=== PATIENT | male | born 1940 | race Caucasian/White ===

== ENCOUNTER → 2016-12-24 | Outpatient (CLI) | payer OTHER, MEDICARE ==
[~2016-12-24] MED LIST: ASCA500 PO; CARV3.12 PO; CHOL400C7 PO; LISI2.5T5 PO; MAGN400T5 PO; VITA400C3 PO
--- NOTE | 2016-12-25 06:06 | PAP/PSG TECHNICIAN REPORT ---
[facility] Guest Services Coordinator Polysomnogram Report Study name: None Report date: 12/25/2016 Study date: 12/24/2016 Referring Physician: DR.CHARLES MENDOZA Name: DOMINIC STOVALL Interpreting Physician: Jonathan Norwood M.D. Date of : 1940 Guest Services Coordinator: Arminda Voss, PSGT. Sex: Male Age: 76 StudyType: PSG Weight: 229 lbs Height: 76 years, Height 6' 0" : BMI: 31.05 Medications: LISINOPRIL 2.5 MG, TOPROL XL 50 MG, VIT.-A 1000 UNITS, OMEGA 3 1000 MG, COQ-10 50 MG, CIALIS 20 MG, VIT.-D2 2000 UNITS, VIT.-E 400 UNITS, VIT.-C 1000 MG, VIT.-B COMPLEX. Patient History 76 YR. OLD MALE IN ROOM 5, HERE FOR A SPLIT NIGHT SLEEP STUDY. PT. STATES THAT HE WAKES OFTEN DURING THE NIGHT. HIS DX IS FOLLOEWS: MILD DARIUS IN 2006 6.6, HE SINCE HAS HAS HAS SC AND EF IS NOW 25 %. HAS ICD, AND HAS LOST40 LBS. SINCE LAST SLEEP STUDY IN 2006.ESS=7. Parameters Monitored NPSG: E1-M2, E2-M1, Fp1-M2, Fp2-M1, F3-M2, F4-M2, F4-M1, C3-M2, C4-M2, C4-M1, O1-M2, O2-M2, O2-M1, T3-M2, T4-M1, P3-M2, P4-M1, CHIN1, CHIN2, HR, EKG, Legs, PFLOW, SNOR, FLOW, CFLOW, Tidal Volume, THOR, ABDO, SpO2, PLTH, CPRESS, ETCO2 Wave, ETCO2, pH Sleep Architecture Sleep Stages Time at Lights Off 10:31:31 PM STAGES Time (min.) TST (%) Time at Lights On 4:50:31 AM Wake 184.5 -- Total Recording Time (TRT) 380.00 min. N1 6.0 3 Total Sleep Period (TSP) 241.5 min. N2 157.5 81 Total Sleep Time (TST) 194.5min. N3 0.0 0 Awake Time 185.5 min. REM 31.0 16 Wake after Sleep Onset 154.0 min. Sleep Efficiency (SE) 51 % Sleep Onset Latency (RODGER) 30.5 min. Number of Stage 1 Shifts None Awakenings 5 Stage Changes 21 Number of REM periods 3 REM 31.0 16 REM Latency 40.0 min. NREM 163.5 84 Body Position Analysis Supine Right Left Side Prone Vertical Total Sleep Time (min.) 34.8 120.5 73.7 194.19 0.0 0.1 Total Sleep Time (%) 0% 62% 38% 100 0% N/A% Total Sleep Time REM (min.) 0.0 7.0 24.0 None 0.0 0.0 Total Sleep Time NREM (min.) 0.3 113.5 49.7 None 0.0 0.0 Intermittent Wake (min.) 34.4 105.4 44.5 None 0.0 0.1 Total Sleep Period (%) 2% None None None None None Arousals Myoclonus (PLM) * Events Count Index Events Count Index Spontaneous 8 2 Events Awake (PLMW) 5 1.6 Respiratory 0 0.0 Events Asleep w/ Arousal (PLMA) 1 0.3 PLM 1 0 Events Asleep w/o Arousal (PLMS) 66 20.4 Snoring 4 1 Total Asleep 67 20.7 Total 13 4 Total 72 11 Respiratory Analysis * CA OA MA CH H RERA Total Count 0 0 0 0 22 0 22 Index 0.0 0.0 0.0 0 6.8 0 6.8 Mean Duration 0.0 0.0 0.0 0.00 22.6 0.0 22.6 Longest Duration 0.0 0.0 0.0 0.00 0.0 0.0 51.3 Respiratory Event Summary Total Supine ~Supine Right Left Prone REM NREM Apneas Count 0 0 0 0 0 N/A 0 0 Index 0.0 0 0 0.0 0.0 N/A 0 0 Hypopneas (4% Desat) Count 22 0 22 8 14 N/A 8 14 Index 6.8 0.0 7 4.0 11.4 N/A 15.5 5.1 Apneas & All Hypopneas Count 22 0 22 8 14 N/A 8 14 Index 6.8 0 7 4 11 N/A 15.5 5.1 Respiratory Events (Transition Program Manager+All Hyp+RERA) Count 22 0 22 8 14 N/A 8 14 Index 6.8 0 7 4.0 11.4 N/A 15.5 5.1 Respiratory Related Arousal Count 0 0 0 0 0 N/A 0 0 Index 0.0 0 0 0 0 N/A 0 0 Snoring Analysis Supine Right Left Prone REM NREM Total Snore duration 8.1 min Snores count 0 254 120 N/A 18 356 374 Snore mean duration 1.3 Sec Snores index 0 126 98 N/A 34.8 130.6 115.4 TST with snoring (%) 4.1% Desaturation Event Summary: Minimum %SpO2 Event Count Mean/Min/Max Duration(sec.) Desaturation Index % Time In Bed > 90 21 30.2 / 13.8 / 58.8 6.1 59.6 86 - 90 7 31.8 / 19.8 / 58.3 3.1 39.8 81 - 85 0 N/A 0.0 0.6 76 - 80 0 N/A 0.0 0.0 71 - 75 0 N/A 0.0 0.0 66 - 70 0 N/A 0.0 0.0 61 - 65 0 N/A 0.0 0.0 56 - 60 0 N/A 0.0 0.0 51 - 55 0 N/A 0.0 0.0 < 50 0 N/A 0.0 0.0 Total REM NREM Awake <50% 0.0 min. 0.0 min. 0.0 min. 0.0 min. 51 - 60% 0.0 min. 0.0 min. 0.0 min. 0.0 min. 61 - 70% 0.0 min. 0.0 min. 0.0 min. 0.0 min. 71 - 80% 0.1 min. 0.0 min. 0.0 min. 0.1 min. 81 - 90% 139.8 min. 22.8 min. 88.4 min. 28.6 min. 91 - 100% 206.2 min. 8.0 min. 74.7 min. 123.5 min. Average 91 89 90 92 Minimum SpO2 79 82 84 79 Desaturation Event Index 3.6 13.5 5.9 0.0 # Desat. Events below 89% 15 7 8 N/A Time(%) with Saturation below 89% 7.6 3.8 2.6 1.2 Time(min.) with Saturation below 89% 26.3 13.1 8.9 4.2 Heart Rate Analysis End Tidal CO2 Analysis Min (bpm) Max (bpm) Average (bpm) TSP (mins) % of TSP Awake 31 127 63 Above 55 mmHg 0.0 0.0 NREM 52 74 60 50-55 mmHg 0.0 0.0 REM 51 77 58 45-50 mmHg 194.5 100.0 Overall 51 77 60 40-45 mmHg 0.0 0.0 35-40 mmHg 0.0 0.0 30-35 mmHg 0.0 0.0 Average ETCO2 0.0 Supplemental O2 Values Minimum O2 level: None Value Start Time End Time Guest Services Coordinator Comments PSG Study Mr. Stovall slept in the right, left, and supine positions. No cardiac arrhythmia, PLM's noted. No bruxism noted. Snoring was noted and scored as a 2 on a scale of 1 through 5. (0=no snoring, 5=snoring loud enough to be heard through a closed door or down the corea way) Mr. Stovall awoke to use the restroom 2 times during the night. Mr. Stovall stated, I did not sleep as well as I do when I am in my own bed. My shoulders were hurting me. The final report will be interpreted and signed by a sleep physician. The completed physician report will then be placed in the patient medical record. didn't sleep well he would wake for the restroom and have a hard time getting back to sleep at 4:40 am he wanted to end the sleep study shower and go home. Therapy Event: Therapy (cm H20) Total Time at Pressure (min.) TST at Pressure (min.) # Periods Sleep Onset (min.) REM Onset (min.) Sleep Efficiency % Wakefulness (%) Wakefulness (min.) NREM 1 (%) NREM 1 (min.) NREM 2 (%) NREM 2 (min.) NREM 3 (%) NREM 3 (min.) REM (%) REM (min.) # Arousals Arousal Index # Snore Snore Index AHI AHI Supine AHI Non-Supine NREM AHI REM AHI RDI # Obstructive # Central Ap # Mixed # Hypopneas RERAS Total Respiratory Events Time Below SpO2 89.00% (min.) Mean NREM SpO2 (%) Mean REM SpO2 (%) Mean Sleep SpO2 (%) Min NREM SpO2 (%) Min REM SpO2 (%) Position Supine (min.) Position Non-supine (min.) LM Index Sleep LM Index NREM LM Index REM Mean Heart Rate (bpm) Min Heart Rate (bpm)
--- NOTE | 2016-12-25 06:07 | PAP/PSG TECHNICIAN REPORT ---
[facility] Rn Surgical Pcu Polysomnogram Report Study name: None Report date: 12/25/2016 Study date: 12/24/2016 Referring Physician: DR.CHARLES MENDOZA Name: DOMINIC STOVALL Interpreting Physician: Jonathan Norwood M.D. Date of : 1940 Rn Surgical Pcu: Arminda Voss, PSGT. Sex: Male Age: 76 StudyType: PSG Weight: 229 lbs Height: 76 years, Height 6' 0" Neck Circum: BMI: 31.05 Medications: LISINOPRIL 2.5 MG, TOPROL XL 50 MG, VIT.-A 1000 UNITS, OMEGA 3 1000 MG, COQ-10 50 MG, CIALIS 20 MG, VIT.-D2 2000 UNITS, VIT.-E 400 UNITS, VIT.-C 1000 MG, VIT.-B COMPLEX. Patient History 76 YR. OLD MALE IN ROOM 5, HERE FOR A SPLIT NIGHT SLEEP STUDY. PT. STATES THAT HE WAKES OFTEN DURING THE NIGHT. HIS DX IS FOLLOEWS: MILD DARIUS IN 2006 6.6, HE SINCE HAS HAD A NE AND HIS EF IS NOW 25 %. HAS ICD, AND HAS LOST40 LBS. SINCE LAST SLEEP STUDY IN 2006.ESS=7. Parameters Monitored NPSG: E1-M2, E2-M1, Fp1-M2, Fp2-M1, F3-M2, F4-M2, F4-M1, C3-M2, C4-M2, C4-M1, O1-M2, O2-M2, O2-M1, T3-M2, T4-M1, P3-M2, P4-M1, CHIN1, CHIN2, HR, EKG, Legs, PFLOW, SNOR, FLOW, CFLOW, Tidal Volume, THOR, ABDO, SpO2, PLTH, CPRESS, ETCO2 Wave, ETCO2, pH Sleep Architecture Sleep Stages Time at Lights Off 10:31:31 PM STAGES Time (min.) TST (%) Time at Lights On 4:50:31 AM Wake 184.5 -- Total Recording Time (TRT) 380.00 min. N1 6.0 3 Total Sleep Period (TSP) 241.5 min. N2 157.5 81 Total Sleep Time (TST) 194.5min. N3 0.0 0 Awake Time 185.5 min. REM 31.0 16 Wake after Sleep Onset 154.0 min. Sleep Efficiency (SE) 51 % Sleep Onset Latency (RODGER) 30.5 min. Number of Stage 1 Shifts None Awakenings 5 Stage Changes 21 Number of REM periods 3 REM 31.0 16 REM Latency 40.0 min. NREM 163.5 84 Body Position Analysis Supine Right Left Side Prone Vertical Total Sleep Time (min.) 34.8 120.5 73.7 194.19 0.0 0.1 Total Sleep Time (%) 0% 62% 38% 100 0% N/A% Total Sleep Time REM (min.) 0.0 7.0 24.0 None 0.0 0.0 Total Sleep Time NREM (min.) 0.3 113.5 49.7 None 0.0 0.0 Intermittent Wake (min.) 34.4 105.4 44.5 None 0.0 0.1 Total Sleep Period (%) 2% None None None None None Arousals Myoclonus (PLM) * Events Count Index Events Count Index Spontaneous 8 2 Events Awake (PLMW) 5 1.6 Respiratory 0 0.0 Events Asleep w/ Arousal (PLMA) 1 0.3 PLM 1 0 Events Asleep w/o Arousal (PLMS) 66 20.4 Snoring 4 1 Total Asleep 67 20.7 Total 13 4 Total 72 11 Respiratory Analysis * CA OA MA CH H RERA Total Count 0 0 0 0 22 0 22 Index 0.0 0.0 0.0 0 6.8 0 6.8 Mean Duration 0.0 0.0 0.0 0.00 22.6 0.0 22.6 Longest Duration 0.0 0.0 0.0 0.00 0.0 0.0 51.3 Respiratory Event Summary Total Supine ~Supine Right Left Prone REM NREM Apneas Count 0 0 0 0 0 N/A 0 0 Index 0.0 0 0 0.0 0.0 N/A 0 0 Hypopneas (4% Desat) Count 22 0 22 8 14 N/A 8 14 Index 6.8 0.0 7 4.0 11.4 N/A 15.5 5.1 Apneas & All Hypopneas Count 22 0 22 8 14 N/A 8 14 Index 6.8 0 7 4 11 N/A 15.5 5.1 Respiratory Events (Auto Tester+All Hyp+RERA) Count 22 0 22 8 14 N/A 8 14 Index 6.8 0 7 4.0 11.4 N/A 15.5 5.1 Respiratory Related Arousal Count 0 0 0 0 0 N/A 0 0 Index 0.0 0 0 0 0 N/A 0 0 Snoring Analysis Supine Right Left Prone REM NREM Total Snore duration 8.1 min Snores count 0 254 120 N/A 18 356 374 Snore mean duration 1.3 Sec Snores index 0 126 98 N/A 34.8 130.6 115.4 TST with snoring (%) 4.1% Desaturation Event Summary: Minimum %SpO2 Event Count Mean/Min/Max Duration(sec.) Desaturation Index % Time In Bed > 90 21 30.2 / 13.8 / 58.8 6.1 59.6 86 - 90 7 31.8 / 19.8 / 58.3 3.1 39.8 81 - 85 0 N/A 0.0 0.6 76 - 80 0 N/A 0.0 0.0 71 - 75 0 N/A 0.0 0.0 66 - 70 0 N/A 0.0 0.0 61 - 65 0 N/A 0.0 0.0 56 - 60 0 N/A 0.0 0.0 51 - 55 0 N/A 0.0 0.0 < 50 0 N/A 0.0 0.0 Total REM NREM Awake <50% 0.0 min. 0.0 min. 0.0 min. 0.0 min. 51 - 60% 0.0 min. 0.0 min. 0.0 min. 0.0 min. 61 - 70% 0.0 min. 0.0 min. 0.0 min. 0.0 min. 71 - 80% 0.1 min. 0.0 min. 0.0 min. 0.1 min. 81 - 90% 139.8 min. 22.8 min. 88.4 min. 28.6 min. 91 - 100% 206.2 min. 8.0 min. 74.7 min. 123.5 min. Average 91 89 90 92 Minimum SpO2 79 82 84 79 Desaturation Event Index 3.6 13.5 5.9 0.0 # Desat. Events below 89% 15 7 8 N/A Time(%) with Saturation below 89% 7.6 3.8 2.6 1.2 Time(min.) with Saturation below 89% 26.3 13.1 8.9 4.2 Time (mins) REM (mins) NREM (mins) % of TST SpO2 Below 90% 23 7 N16 26.9 SpO2 Below 88% 8 0 0 5 Heart Rate Analysis Min (bpm) Max (bpm) Average (bpm) Awake 31 127 63 NREM 52 74 60 REM 51 77 58 Overall 51 77 60 Supplemental O2 Values Minimum O2 level: None Value Start Time End Time Rn Surgical Pcu Comments PSG Study Mr. Stovall slept in the right, left, and supine positions. No cardiac arrhythmia, PLM's noted. No bruxism noted. Snoring was noted and scored as a 2 on a scale of 1 through 5. (0=no snoring, 5=snoring loud enough to be heard through a closed door or down the corea way) Mr. Stovall awoke to use the restroom 2 times during the night. Mr. Stovall stated, I did not sleep as well as I do when I am in my own bed. My shoulders were hurting me. The final report will be interpreted and signed by a sleep physician. The completed physician report will then be placed in the patient medical record.Pt. didn't sleep well he would wake for the restroom and have a hard time getting back to sleep at 4:40 am he wanted to end the sleep study shower and go home. Therapy (cm H2O) 0 TIB (min.) 379.0 TST (min.) 194.5 Sleep Onset (min.) 30.5 REM Onset From Sleep (min.) 40.0 Sleep Efficiency % 51 Wakefulness (%) 49 Wakefulness (min.) 185.5 NREM 1 (%) 3 NREM 1 (min.) 6.0 NREM 2 (%) 81 NREM 2 (min.) 157.5 NREM 3 (%) 0 NREM 3 (min.) 0.0 REM (%) 16 REM (min.) 31.0 # Arousals 13 Arousal Index 4 # Snore 374 Snore Index 115.4 AHI 6.8 AHI Supine 0 AHI Non-Supine 7 NREM AHI 5.1 REM AHI 15.5 RDI 6.8 # Obstructive Apnea 0 # Central Apnea 0 # Mixed Apnea 0 # Hypopneas 22 RERAs 0 Total Respiratory Events 24 Time Below SpO2 89% (min.) 22.1 Mean NREM SpO2 (%) 90 Mean REM SpO2 (%) 89 Mean Sleep SpO2 (%) 90 Min NREM SpO2 (%) 84 Min REM SpO2 (%) 82 Position Supine (min.) 34.8 Position Non-supine (min.) 194.2 LM Index Sleep 20.7 LM Index NREM 23.5 LM Index REM 5.8 Mean Heart Rate (bpm) 60 Min Heart Rate (bpm) 51
--- NOTE | 2017-01-04 13:45 | POLYSOMNOGRAPH REPORT ---
REFERRING PERSON: Dr. Rosemary Norwood. DOUBLE CORNER CUTTER: Mayuri Voss. Mr. Medina is a 76-year-old male sent for a possible split night sleep study. He was diagnosed with mild sleep apnea in 2006 with an AHI of 6.6. Since then, he has had an CA. His EF is now 25%, has ICD and has lost 40 pounds since previous sleep testing. His [place] sleepiness scale score on the evening of this study is 7. BMI is 31.05. Following the technical and digital specifications of the [place] [employer] (AASM) a standard diagnostic polysomnogram was performed monitoring EEG, EOG, EMG (chin and leg deviations), oxygen saturation, body position, digital video, respiratory effort and airflow. The sleep Stage and event scoring was based on the AASM Manual for the Scoring of Sleep and Associated Events 2007 edition. Apneas are defined as a drop in the peak thermal sensor excursion by >90% of baseline for at least 10 seconds. Hypopneas were scored using the 4% oxygen desaturation rule (4A-[employer]ic[employer]) and a decrease in the nasal pressure excursions by >30% of baseline for at least 10 seconds. Respiratory effort-related arousal (RERA's) is defined as a sequence of breaths lasting at least 10 seconds characterized by increasing respiratory effort or flattening of the nasal pressure waveform leading to an arousal from sleep when the sequence of breaths does not meet criteria for an apnea or hypopnea. Apnea Hypopnea index (AHI) is defined as the number of apneas and hypopneas occurring in an hour of sleep. Respiratory disturbance index (RDI) is defined as the number of apneas, hypopneas, and RERA's occurring in an hour of sleep. Mr. Medina's total sleep period time was 241.5 minutes. Total sleep time was only 194.5 minutes. Sleep efficiency was 51%. Latency to sleep onset was 30.5 minutes with wake after sleep onset of 154 minutes. Total non-REM sleep time was 163.5 minutes. He spent 3% of that time in N1 sleep, 81% in N2 sleep and no time in N3 sleep. REM latency was 40 minutes with total REM sleep time 31.0 minutes or 16% of total sleep time. This is abnormal non-REM abnormal sleep architecture with a propensity for superficial sleep. There were 13 cortical arousals from sleep. Eight of these arousals were spontaneous, 4 were due to snoring and 1 was due to a periodic limb movement. There were 67 periodic limb movements noted on this test. Limb movement index was 20.7. Limb movement with arousal index was 0.3. There were no central obstructive or mixed apneas on this test. However, there were 22 hypopnea. Apnea-hypopnea index was 6.8 consistent with mild sleep apnea. REM AHI was 15.5. All of his sleep time was spent nonsupine. 374 snoring events were recorded. Total sleep time with snoring was 4.1%. Mean saturation was 91% with desaturations to 79%. Saturations were less than 89% for 26.3 minutes of recorded time. This is significant nocturnal hypoxemia. There was no cardiac ectopy noted on this study. Heart rates during sleep ranged from a low of 51 beats per minute to a high of 77 beats per minute. IMPRESSION AND PLAN: Mr. Medina is a 76-year-old male with evidence of mild sleep apnea and significant nocturnal hypoxemia on this sleep study. His apnea continues to be obstructive. No evidence of central sleep apnea on this study. 1. This patient would likely benefit from positive airway pressure therapy. This would resolve both his hypoxemia as well as apnea. He should return to the sleep lab for a full night titration and then based on those results be started on equipment at home. A download from his machine can be reviewed in 1 month both to check compliance as well as AHI and further pressure adjustments can occur at that time. 2. Alternatively, this patient could be started on auto titrating CPAP with pressures of 5-15 cm. A download from his machine reviewed in 1 month and he can be set to optimal pressure at that time. NPO can be performed on CPAP at optimal pressure to ensure hypoxemia has resolved with therapy. 3. Should this patient be unwilling or unable to tolerate CPAP therapy, he could be referred to ear, nose and throat or oral surgery/dental medicine (if appropriate) to discuss alternative treatments for sleep disorder breathing.
== END | disposition home or self-care (01) ==
LOC: C.NEUR 21:00
PROVIDERS: ATTEND Family Medicine
DX: G47.33 Obstructive sleep apnea (adult) (pediatric) (principal); G47.10 Hypersomnia, unspecified

== ENCOUNTER → 2018-03-22 | Outpatient (CLI) | payer OTHER, MEDICARE ==
[~2018-03-22] MED LIST changes: +LISI-1116 PO; -LISI2.5T5 PO
--- NOTE | 2018-03-23 05:25 | PAP/PSG TECHNICIAN REPORT ---
[facility] Executor Of Estate Polysomnogram Report Study name: None Report date: 03/23/2018 Study date: 03/22/2018 Referring Physician: Hyacinth Tan Name: DOMINIC STOVALL Interpreting Physician: Elizabeth Mckenzie M.D. Date of : 1940 Executor Of Estate: Amada Mcfarlane [facility]. Sex: Male Age: 77 Study Type: PSG PAP Weight: 221 lbs Height: 77 years, Height 6' 1" BMI: 29.15 Medications: LISINOPRIL 2.5 MG, METOPROLOL 50 MG, VIT A 04781 UNIT, HCMGH-3-POKWZ ACIDS 1000 MG, MULTI VIT, METFORMIN 500 MG Patient History 77 yr-old male here for a CPAP update study. He is currently on 7 to 8 CMH2O. He is experiencing some mouth leakage, and headaches. He is back to assess his DARIUS and his O2 saturations. CPAP is to begin at 7 CMH2O and O2 will be added if protocol is met. The test was started on room air and 7 CMH2O. ETCO2 testing was not utilized during this study. Room 1 Parameters Monitored NPSG: E1-M2, E2-M1, Fp1-M2, Fp2-M1, F3-M2, F4-M2, F4-M1, C3-M2, C4-M2, C4-M1, O1-M2, O2-M2, O2-M1, T3-M2, T4-M1, P3-M2, P4-M1, CHIN1, CHIN2, HR, EKG, Legs, PFLOW, SNOR, FLOW, CFLOW, Tidal Volume, THOR, ABDO, SpO2, PLTH, CPRESS, ETCO2 Wave, ETCO2, pH Sleep Architecture Sleep Stages Time at Lights Off 10:40:38 PM STAGES Time (min.) TST (%) Time at Lights On 4:53:38 AM Wake 78.5 -- Total Recording Time (TRT) 373.00 min. N1 42.5 14 Total Sleep Period (TSP) 351.5 min. N2 187.0 63 Total Sleep Time (TST) 294.5min. N3 0.0 0 Awake Time 78.5 min. REM 65.0 22 Wake after Sleep Onset 67.0 min. Sleep Efficiency (SE) 79 % Sleep Onset Latency (RODGER) 11.5 min. Number of Stage 1 Shifts None Awakenings 17 Stage Changes 76 Number of REM periods 9 REM 65.0 22 REM Latency 31.5 min. NREM 229.5 78 Body Position Analysis Supine Right Left Side Prone Vertical Total Sleep Time (min.) 111.7 0.0 204.5 204.50 0.0 0.0 Total Sleep Time (%) 31% 0% 69% 69 0% N/A% Total Sleep Time REM (min.) 7.0 0.0 58.0 None 0.0 0.0 Total Sleep Time NREM (min.) 83.0 0.0 146.5 None 0.0 0.0 Intermittent Wake (min.) 21.7 0.0 56.8 None 0.0 0.0 Total Sleep Period (%) 31% None None None None None Arousals Myoclonus (PLM) * Events Count Index Events Count Index Spontaneous 30 6 Events Awake (PLMW) 76 58.1 Respiratory 15 3.7 Events Asleep w/ Arousal (PLMA) 5 1.0 PLM 5 1 Events Asleep w/o Arousal (PLMS) 14 2.9 Snoring 9 2 Total Asleep 19 3.9 Total 59 12 Total 95 15 Respiratory Analysis * CA OA MA CH H RERA Total Count 1 4 0 0 19 3 24 Index 0.2 0.8 0.0 0 3.9 1 5.5 Mean Duration 17.9 24.8 0.0 0.00 17.9 21.6 19.3 Longest Duration 17.9 27.5 0.0 0.00 0.0 26.8 27.5 Respiratory Event Summary Total Supine ~Supine Right Left Prone REM NREM Apneas Count 5 4 1 N/A 1 N/A 5 0 Index 1.0 3 0 N/A 0.3 N/A 5 0 Hypopneas (4% Desat) Count 19 17 2 N/A 2 N/A 5 14 Index 3.9 11.3 1 N/A 0.6 N/A 4.6 3.7 Apneas & All Hypopneas Count 24 21 3 N/A 3 N/A 10 14 Index 4.9 14 1 N/A 1 N/A 9.2 3.7 Respiratory Events (Facing Baster+All Hyp+RERA) Count 24 24 3 N/A 3 N/A 10 14 Index 5.5 16 1 N/A 0.9 N/A 9.2 4.4 Respiratory Related Arousal Count 15 24 1 N/A 1 N/A 7 11 Index 3.7 11 0 N/A 0 N/A 6 3 Snoring Analysis Supine Right Left Prone REM NREM Total Snore duration 11.6 min Snores count 451 N/A 88 N/A 58 481 539 Snore mean duration 1.3 Sec Snores index 301 N/A 26 N/A 53.5 125.8 109.8 TST with snoring (%) 3.9% Desaturation Event Summary: Minimum %SpO2 Event Count Mean/Min/Max Duration(sec.) Desaturation Index % Time In Bed > 90 30 30.5 / 8.5 / 60.0 5.3 98.2 86 - 90 1 18.0 / 18.0 / 18.0 10.5 1.6 81 - 85 0 N/A 0.0 0.1 76 - 80 0 N/A 0.0 0.0 71 - 75 0 N/A 0.0 0.0 66 - 70 0 N/A 0.0 0.0 61 - 65 0 N/A 0.0 0.0 56 - 60 0 N/A 0.0 0.0 51 - 55 0 N/A 0.0 0.0 < 50 0 N/A 0.0 0.0 Total REM NREM Awake <50% 0.0 min. 0.0 min. 0.0 min. 0.0 min. 51 - 60% 0.0 min. 0.0 min. 0.0 min. 0.0 min. 61 - 70% 0.0 min. 0.0 min. 0.0 min. 0.0 min. 71 - 80% 0.0 min. 0.0 min. 0.0 min. 0.0 min. 81 - 90% 6.1 min. 4.3 min. 1.2 min. 0.7 min. 91 - 100% 341.0 min. 60.7 min. 228.3 min. 51.9 min. Average 95 94 95 95 Minimum SpO2 81 85 81 86 Desaturation Event Index 5.0 10.2 5.0 0.8 # Desat. Events below 89% 7 5 2 0 Time(%) with Saturation below 89% 0.6 0.3 0.2 0.1 Time(min.) with Saturation below 89% 2.1 1.2 0.6 0.4 Time (mins) REM (mins) NREM (mins) % of TST SpO2 Below 90% 12 8 N4 1.4 SpO2 Below 88% 3 0 0 0 Heart Rate Analysis Min (bpm) Max (bpm) Average (bpm) Awake 58 90 69 NREM 56 88 62 REM 56 84 64 Overall 56 88 63 Supplemental O2 Values Minimum O2 level: None Value Start Time End Time Executor Of Estate Comments Mr. Stovall slept in the right, left, and supine positions. Cardiac arrhythmias were noted (please refer to the printouts). No PLMs noted. No bruxism noted. CPAP was initiated at +7 CMH2O (per the doctor's order) and up-titrated to a level of +10 CMH2O, Cflex 2 which nearly eliminated all respiratory events and snoring. He had one REM period while supine that resulted in numerous hypopneas and apneas. The pressure was adjusted higher for those events. O2 was not titrated during the study. A [employer] full face mask from [employer] was used during titration. Mask leak seemed to be within normal limits. He awoke to use the restroom three times during the night. He woke up a little before 5 am and requested to be done with the study. Mr. Stovall stated that he did not sleep well and had problems with dry mouth. The final report will be interpreted and signed by a sleep physician. The completed physician report will then be placed in the patient medical record. CPAP REPORT Therapy Detail Time / Page # Comment CPAP 7 cm H2O Full Face Mask Flex Pressure Relief Humidifier on 10:37:05 PM / pg. 323 PER THE DOCTOR'S ORDER, STARTING PAP AT 7 CMH2O CPAP 8 cm H2O Full Face Mask Flex Pressure Relief Humidifier on 1:21:59 AM / pg. 653 INCREASED FOR HYPOPNEAS WHILE SUPINE CPAP 10 cm H2O Full Face Mask Flex Pressure Relief Humidifier on 1:49:38 AM / pg. 709 INCREASED FOR APNEAS AND HYPOPNEAS WHILE IN SUPINE REM Therapy Event: Therapy (cm H20) 7 8 10 Total Time at Pressure (min.) 161.4 27.6 184.0 TST at Pressure (min.) 119.4 27.1 148.0 # Periods 1 1 1 Sleep Onset (min.) 11.5 0.0 0.0 REM Onset (min.) 43.0 22.1 0.0 Sleep Efficiency % 74 98 80 Wakefulness (%) 26.0 1.8 19.6 Wakefulness (min.) 42.0 0.5 36.0 NREM 1 (%) 14.6 3.6 9.8 NREM 1 (min.) 23.5 1.0 18.0 NREM 2 (%) 43.3 76.5 52.2 NREM 2 (min.) 69.9 21.1 96.0 NREM 3 (%) 0.0 0.0 0.0 NREM 3 (min.) 0.0 0.0 0.0 REM (%) 16.1 18.1 18.5 REM (min.) 26.0 5.0 34.0 # Arousals 29 6 24 Arousal Index 14.6 13.3 9.7 # Snore 449 60 30 Snore Index 225.7 132.6 12.2 AHI 8.0 13.3 0.8 AHI Supine 12.8 13.3 59.9 AHI Non-Supine 3.1 N/A 0.0 NREM AHI 8.4 2.7 0.0 REM AHI 6.9 60.0 3.5 RDI 9.6 13.3 0.8 # Obstructive 0 2 2 # Central Ap 1 0 0 # Mixed 0 0 0 # Hypopneas 15 4 0 RERAS 3 0 0 Total Respiratory Events 19 6 2 Time Below SpO2 89.00% (min.) 0.7 0.8 0.3 Mean NREM SpO2 (%) 94 94 95 Mean REM SpO2 (%) 93 94 94 Mean Sleep SpO2 (%) 94 94 95 Min NREM SpO2 (%) 81 85 92 Min REM SpO2 (%) 88 85 86 Position Supine (min.) 60.9 27.1 2.0 Position Non-supine (min.) 58.5 0.0 146.0 LM Index Sleep 2.5 4.4 4.9 LM Index NREM 2.6 2.7 3.7 LM Index REM 2.3 12.0 8.8 Mean Heart Rate (bpm) 64 62 62 Min Heart Rate (bpm) 58 57 56
== END | disposition home or self-care (01) ==
LOC: C.NEUR 20:00
PROVIDERS: ATTEND Nurse Practitioner Family
DX: G47.33 Obstructive sleep apnea (adult) (pediatric) (principal); R51 Headache; G47.34 Idiopathic sleep related nonobstructive alveolar hypoventilation

== ENCOUNTER 2019-09-13 20:13 | Inpatient (IN) ==
--- NOTE | 2019-09-13 21:05 | XRay Report ---
XR chest 1V portable HISTORY: cough, poss pneumonia COMPARISON: Chest and abdominal series 02/23/2012. FINDINGS: The heart remains mildly enlarged. Is left-sided dual-chamber pacemaker/defibrillator. Wedg e-shaped density within the left upper lobe measuring 6.8 x 6.7 cm. No associated cavitation. No pneu mothorax. No pleural effusions. Mild interstitial thickening at the lung bases. The right lung is anoop ar. Mild central pulmonary vascular congestion without overt edema. IMPRESSION: 1. There is a 6.8 x 6.7 cm wedge-shaped density within the left upper lobe. This could represent a pn eumonia, mass, or pulmonary infarct. Follow-up chest CT recommended for further evaluation. 2. Cardiomegaly with mild central pulmonary vascular congestion. ACT 112: Negative or not required by law. Electronically signed by: Lex Rashid M.D. 09/13/2019 9:04 PM
--- NOTE | 2019-09-13 21:17 | Emergency Department Note ---
Entered by Itzel Salgado acting as a scribe for History of Present Illness General Chief complaint: Cough Stated complaint: COUGH Time Seen by Provider: 09/13/19 20:42 Source: patient History of Present Illness Onset (ago): day(s) 1 Location: chest Pain Consistency: + constant Relieved By: + none Associated symptoms: + cough; no shortness of breath Treatments prior to arrival: none The patient is a 79 year old male who presents to the Emergency Room with complaints of cough that worsened today. The patient was diagnosed with a respiratory infection a few weeks ago. He was put on Doxycycline for 7 days. The patient finished the medication one week ago. He believes his symptoms have somewhat improved, for his mucus is gone. However, he notes that his cough is still present, and tonight it worsened. He reports that he does not feel short of breath. The patient believes that he is feeling better than a few weeks ago. The patient denies underlying lung disease. Home Medications Home Medications Medication Instructions Recorded Confirmed Type furosemide 20 mg PO QAM 12/19/18 09/13/19 History lisinopril 2.5 mg PO QAM 12/19/18 09/13/19 History vitamin B complex 1 tab PO DAILY 12/19/18 09/13/19 History ascorbic acid (vitamin C) 4 g PO BID 09/13/19 09/13/19 History metformin 1,000 mg PO BID 09/13/19 09/13/19 History metoprolol succinate 100 mg PO HS 09/13/19 09/13/19 History [id number]-fish oil [[place]part[place]-3 1 cap PO BID 09/13/19 09/13/19 History Fish Oil] vitamin A 25,000 unit PO DAILY 09/13/19 09/13/19 History Allergies Allergy/AdvReac Type Severity Reaction Status Date / Time Arnolivia (Perico kim) AdvReac Difficulty Unverified 09/13/19 23:29 Breathing oyster Allergy Mild Vomiting Uncoded 12/29/18 09:21 Past Med/Surg History Medical History Diabetes mellitus, type 2 Hearing deficit Hypertension ICD (implantable cardioverter-defibrillator) in place 2008--[employer] 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 and A total of 10 systems reviewed and were otherwise negative Physical Exam Vital Signs Vital Signs - 24 hr 09/13/19 20:19 09/13/19 21:37 09/13/19 21:40 Temperature 36.8 C Temperature Source Oral Pulse Rate 65 69 67 Pulse Rate from SpO2 Sensor 69 67 Respiratory Rate 20 17 18 Respiratory Effort / Characteristics Non-Labored Spontaneous Respiratory Depth Normal Respiratory Pattern Regular Blood Pressure 125/70 Blood Pressure Mean 88 Blood Pressure Position Sitting Pulse Oximetry 97 97 97 Oxygen Delivery Method Room Air Sepsis Recent Fever Within 48 Hours No Sepsis New/Unexplained Change in Mental Status No Sepsis Action Taken by Nursing No Action Required 09/13/19 21:50 09/13/19 22:00 09/13/19 22:10 Temperature Temperature Source Pulse Rate 67 73 67 Pulse Rate from SpO2 Sensor 66 72 67 Respiratory Rate 16 16 19 Respiratory Effort / Characteristics Respiratory Depth Respiratory Pattern Blood Pressure Blood Pressure Mean Blood Pressure Position Pulse Oximetry 95 97 96 Oxygen Delivery Method Sepsis Recent Fever Within 48 Hours Sepsis New/Unexplained Change in Mental Status Sepsis Action Taken by Nursing 09/13/19 22:33 09/13/19 22:34 09/13/19 22:40 Temperature Temperature Source Pulse Rate 71 69 66 Pulse Rate from SpO2 Sensor 71 70 66 Respiratory Rate 15 16 18 Respiratory Effort / Characteristics Respiratory Depth Respiratory Pattern Blood Pressure 112/57 L 112/57 L Blood Pressure Mean 75 70 Blood Pressure Position Pulse Oximetry 97 96 95 Oxygen Delivery Method Sepsis Recent Fever Within 48 Hours Sepsis New/Unexplained Change in Mental Status Sepsis Action Taken by Nursing 09/13/19 22:50 09/13/19 23:00 09/13/19 23:01 Temperature Temperature Source Pulse Rate 67 64 66 Pulse Rate from SpO2 Sensor 66 Respiratory Rate 17 16 14 Respiratory Effort / Characteristics Respiratory Depth Respiratory Pattern Blood Pressure 126/65 Blood Pressure Mean 74 Blood Pressure Position Pulse Oximetry 95 Oxygen Delivery Method Sepsis Recent Fever Within 48 Hours Sepsis New/Unexplained Change in Mental Status Sepsis Action Taken by Nursing 09/13/19 23:10 09/13/19 23:20 09/13/19 23:30 Temperature Temperature Source Pulse Rate 67 66 66 Pulse Rate from SpO2 Sensor Respiratory Rate 16 19 14 Respiratory Effort / Characteristics Respiratory Depth Respiratory Pattern Blood Pressure Blood Pressure Mean Blood Pressure Position Pulse Oximetry Oxygen Delivery Method Sepsis Recent Fever Within 48 Hours Sepsis New/Unexplained Change in Mental Status Sepsis Action Taken by Nursing 09/13/19 23:31 09/13/19 23:40 09/13/19 23:50 Temperature Temperature Source Pulse Rate 68 66 68 Pulse Rate from SpO2 Sensor 68 Respiratory Rate 18 17 18 Respiratory Effort / Characteristics Respiratory Depth Respiratory Pattern Blood Pressure 107/51 L Blood Pressure Mean 68 Blood Pressure Position Pulse Oximetry 93 Oxygen Delivery Method Sepsis Recent Fever Within 48 Hours Sepsis New/Unexplained Change in Mental Status Sepsis Action Taken by Nursing 09/14/19 00:00 09/14/19 00:10 Temperature Temperature Source Pulse Rate 66 67 Pulse Rate from SpO2 Sensor 66 67 Respiratory Rate 19 17 Respiratory Effort / Characteristics Respiratory Depth Respiratory Pattern Blood Pressure 119/58 L Blood Pressure Mean 64 Blood Pressure Position Pulse Oximetry 94 96 Oxygen Delivery Method Sepsis Recent Fever Within 48 Hours Sepsis New/Unexplained Change in Mental Status Sepsis Action Taken by Nursing GENERAL: Patient is in no acute distress. HEENT: No acute trauma, normocephalic atraumatic, mucous membranes moist, no nasal congestion, no scleral icterus. NECK: No stridor, no adenopathy, no meningismus, trachea is midline. LUNGS: Crackles occasionally at the left base. No wheezing. Equal breath sounds. No respiratory distress. HEART: 2/6 systolic murmur. Regular rate and rhythm. ABDOMEN: Soft, nontender, bowel sounds positive, no hernias, no peritonitis. EXTREMITIES: No cyanosis or edema, full range of motion of all the joints without pain or difficulty, no signs for acute trauma. NEUROLOGIC: Oriented x 3, no acute motor or sensory deficits, no focal weakness. SKIN: No rash, no jaundice, no diaphoresis. Course Course 2041: Past medical records reviewed. The patient was evaluated in room C01B. A complete history and physical exam was performed. 2117: I updated the patient on his imaging results. The patient will go for CT. 2253: I updated the patient on his concerning lab and imaging results. I discussed the possibility of staying in the hospital for further treatment. The patient is agreeable to this. 2301: I spoke to Dr. Toth, [facility] hospitalist, regarding the patient. He agreed to take over care of the patient. The patient understands and is agreeable to the treatment plan. He will stay for further evaluation. Administered Medications Ioversol (Optiray 320 125ml) 118 ml IV ONCE PRN PRN Reason: Interaction Checking Stop: 09/17/19 22:22 Last Admin: 09/13/19 22:26 Dose: 118 ml Documented by: [id number] Discontinued Medications Piperacillin Sod/Tazobactam Sod (Zosyn) 4.5 gm in 120 mls @ 240 mls/hr IV NOW ONE Stop: 09/13/19 23:21 Last Infusion: 09/14/19 00:01 Dose: 0 mls/hr Documented by: [id number] Admin: 09/13/19 23:24 Dose: 240 mls/hr Documented by: [id number] Medical Decision Making Differential Diagnosis Differential diagnosis includes: pneumonia, bronchitis, CHF, pneumothorax, URI, influenza, among others were considered. Medical Records Attestation: I reviewed the patient's medical records. Medical records from 08/28/19 show a WBC count of 11.27, a hemoglobin of 10, a platelet count of 116, and 2 blasts. Home Medications Current Medication List: was personally reviewed by me Laboratory Data Attestation: I reviewed the patient's lab results. Result diagrams: 09/13/19 21:41 09/13/19 21:41 Lab Results 09/13/19 09/13/19 09/13/19 Range/Units 21:41 21:41 23:28 WBC 43.49 H* (4.8-10.8) K/uL RBC 3.21 L (4.7-6.1) M/uL Hgb 8.7 L (14.0-18.0) g/dL Hct 28.2 L (42-52) % MCV 87.9 (80-100) fL MCH 27.1 (25-34) pg MCHC 30.9 L (32-36) g/dL RDW Std Deviation 72.3 H (36.4-46.3) fL RDW Coeff of Vic 23.3 H (11.5-14.5) % Plt Count 122 L (130-400) K/uL Absolute Nucleated RBC 0.26 H (0-0) K/uL Nucleated RBC % (auto) 0.6 % Neutrophils % (Manual) 13.8 % Lymphocytes % (Manual) 9.5 % Monocytes % (Manual) 68.9 % Blast Cells % (Manual) 7.8 % Neutrophils # (Manual) 6.00 (1.4-6.5) K/uL Total Absolute Neuts 6.00 (1.4-6.5) K/uL Lymphocytes # (Manual) 4.13 H (1.2-3.4) K/uL Total Abs Lymphocytes 4.13 H (1.2-3.4) K/uL Monocytes # (Manual) 29.96 H (0.11-0.59) K/uL Blast Cells # (Man) 3.39 H (0-0) K/uL Platelet Estimate Decreased L (Normal) Anisocytosis Present Tear Drop Cells 1+ Ovalocytes 1+ Sodium 136 (136-145) mmol/L Potassium 3.8 (3.5-5.1) mmol/L Chloride 104 (98-107) mmol/L Carbon Dioxide 28 (21-32) mmol/L Anion Gap 4.0 (3-11) BUN 26 H (7-18) mg/dl Creatinine 1.37 (0.6-1.4) mg/dl Est Cr Clr Drug Dosing 53.8 ml/min Est GFR ( Amer) 57.3 Est GFR (Non-Af Amer) 49.4 BUN/Creatinine Ratio 18.8 (10-20) Glucose 98 (70-99) mg/dl Calcium 9.0 (8.5-10.1) mg/dl Magnesium 2.6 H (1.8-2.4) mg/dl Troponin I < 0.015 (0-0.045) ng/ml Influenza Type A (PCR) Neg for Influ A (Neg) Influenza Type B (PCR) Neg for Influ B (Neg) Imaging Data Radiologist's Impression: Radiology results as stated below per my review and the radiologist's interpretation: XR chest 1V portable HISTORY: cough, poss pneumonia COMPARISON: Chest and abdominal series 02/23/2012. FINDINGS: The heart remains mildly enlarged. Is left-sided dual-chamber pacemaker/defibrillator. Wedge-shaped density within the left upper lobe measuring 6.8 x 6.7 cm. No associated cavitation. No pneumothorax. No pleural effusions. Mild interstitial thickening at the lung bases. The right lung is clear. Mild central pulmonary vascular congestion without overt edema. IMPRESSION: 1. There is a 6.8 x 6.7 cm wedge-shaped density within the left upper lobe. This could represent a pneumonia, mass, or pulmonary infarct. Follow-up chest CT recommended for further evaluation. 2. Cardiomegaly with mild central pulmonary vascular congestion. ACT 112: Negative or not required by law. Electronically signed by: Lex Rashid M.D. 09/13/2019 9:04 PM CHEST CTA for PULMONARY ARTERIES CT DOSE: 696.39 mGy.cm HISTORY: Cough. Recurrent pneumonia. Shortness of breath. Assess for embolus. TECHNIQUE: Multiaxial CT images of the chest were performed following the intravenous administration of contrast to evaluate the pulmonary arteries. Maximal intensity projection images were also obtained. A dose lowering technique was utilized adhering to the principles of ALARA. COMPARISON STUDY: Chest 09/13/2018. Abdomen and pelvis CT 02/23/2012. FINDINGS: A 2.2 cm calcified nodule abutting the right hepatic dome. This is likely benign. The spleen remains enlarged. This is only partially imaged on th is study. There are a few prominent mediastinal lymph nodes. These may be reactive. The heart is mildly enlarged. There is a left-sided pacemaker. No pleural or pericardial effusions. Normal esophagus. Old, healed right-sided rib fractures. Normal caliber thoracic aorta. No significant contrast within the aorta to evaluate for a dissection. No filling defects within the pulmonary arteries to suggest pulmonary embolus. No pneumothorax. Focal dense consolidation within the left upper lobe posteriorly with a few air bronchograms. There is a single partially opacified left upper lobe bronchus best seen on image 185. A 3 mm nodule within the right lower lobe on image 55. A few punctate calcified granulomas within the right lung. There is a 7 mm lobular nodule within the right upper lobe on image 200. A 4 mm nodule within the right middle lobe on image 126. Bibasilar groundglass airspace opacity with a few small focal areas of consolidation within the lower lobes medially. Mild emphysema. IMPRESSION: 1. Focal dense consolidation within the left upper lobe posteriorly. There are also bibasilar groundglass airspace opacities with a few small focal areas of consolidation within the bilateral lower lobes medially. Findings favor a multifocal pneumonia. 2-[address] follow-up recommended to ensure resolution. 2. There is a single partially opacified left upper lobe bronchus as described above. This bears watching on future examinations. 3. No evidence for pulmonary embolus. 4. Stable splenomegaly. 5. A few prominent lymph nodes. These may be reactive. 6. A few subcentimeter indeterminate pulmonary nodules as described above with the largest in the right upper lobe measuring 7 mm. Please refer to the chart below for recommended follow-up. Please refer to below summary of Fleischner criteria recommendations for follow- up of incidental CT nodules (Anibal Pavon, Guidelines for management of small pulmonary nodules detected on CT scans: A statement from the Fleischner Socie ty, Radiology 237: [phone].) SOLID NODULES Solitary nodule size: <6 mm * Low risk patients: no follow-up needed * high risk patients: optional CT at 12 months Solitary nodule size: 6-8 mm * Low risk patients: follow-up at 6-12 months, then consider further follow-up at 18-24 months * high risk patients: initial follow-up CT at 6-12 months and then at 18-24 months if no change Solitary nodule size: >8 mm * either low or high risk patients - consider follow-up CT at 3 months, and/or CT-PET, and/or biopsy Multiple nodules size: <6 mm * Low risk patients: no routine follow-up * high risk patients: optional CT at 12 months Multiple nodules size: 6-8 mm * Low risk patients: follow-up at 3-6 months, then consider further follow-up at 18-24 months * high risk patients: follow-up at 3-6 months, then at 18-24 months if no change Multiple nodules size: >8 mm * Low risk patients: follow-up at 3-6 months, then consider further follow-up at 18-24 months * high risk patients: follow-up at 3-6 months, then at 18-24 months if no change Note: newly detected indeterminate nodule in persons 35 years of age or older. * Low risk patients: minimal or absent history of smoking and/or other known risk factors * high risk patients: history of smoking or of other known risk factors (e.g. first degree relative with lung cancer, or exposure to asbestos, radon, uranium) * if a nodule up to 8 mm is partly solid or is ground glass further follow-up is required after 24 months to exclude possible slow growing adenocarcinoma ([place]LEY) SUBSOLID NODULES Solitary pure ground-glass nodule * nodule size <6 mm - no CT follow-up required * nodule size >=6 mm - follow-up CT at 6-12 months, then every 2 years until 5 years Solitary part-solid nodule * nodule size <6 mm - no CT follow-up required * nodule size >=6 mm - follow-up CT at 3-6 months. If unchanged, and solid component remains <6 mm, then annual follow-up for 5 years Multiple subsolid nodules * nodule size <6 mm - follow-up CT at 3-6 months, consider further follow-up at 2 and 4 years if stable * nodule size >=6 mm - follow-up CT at 3-6 months, subsequent management based on the most suspicious nodule(s) ACT 112: Negative or not required by law. Electronically signed by: Lex Rashid M.D. 09/13/2019 10:47 PM ECG Data Attestation: I personally reviewed and interpreted this ECG as follows: Indication: + SOB/dyspnea Rate (beats per minute): 69 Rhythm: + normal sinus ECG Intervals/blocks: + Left bundle branch block and + Normal QT-c (496) ECG ST segments: no ST elevation ECG Findings: no PVCs Comparison ECG Date: from (02/23/12) Change: the following changes noted (LBBB is new) Blood Pressure Blood Pressure Findings: Low blood pressure Blood Pressure Disposition: further management by hospitalist LORENZO Carranza There is a marked leukocytosis at 43,000. This is quite an increase from the recent testing performed in mid August. Hemoglobin was low at 8.7, he has a history of anemia. Platelet count low at 122, he has a history of a lower platelet count. No significant electrolyte abnormality or kidney failure. EKG showed a sinus rhythm, no acute ischemia. Cardiac enzyme testing x1 is not consistent with acute cardiac injury. Chest film does show what appears to be a left lung pneumonia versus potentially a pulmonary infarct. Chest CT shows left-sided pneumonia, no PE was seen. Blood cultures are pending. The patient was given IV Zosyn as antibiotic coverage. I was able to review recent testing done through [facility]. The patient's white count today is quite a bit higher than his baseline. The last white cell count value a few weeks ago was around 11. The patient has failed treatment as an outpatient for pneumonia. He now presents with persistent lower respiratory symptoms and a very high white blood cell count. He has a history of myelodysplastic syndrome. I do think a hospital stay is warranted. I spoke to the patient about his findings, I spoke with case management. The on-call hospitalist was consulted. Continuous Cardiac Monitoring: An order was placed for continuous cardiac monitoring. The monitor shows a rate of 66 with normal sinus rhythm. Impression & Plan Pneumonia, Leukocytosis, Myelodysplastic syndrome, Failure of outpatient treatment Discharge Plan Visit Data Chief Complaint: Cough Stated Complaint: COUGH ED Provider: Ferny Hernandez Discharge Problem: Pneumonia, Leukocytosis, Myelodysplastic syndrome, Failure of outpatient treatment Patient Disposition: Admitted As Inpatient Forms Stand Alone Forms: [facility] Prescriptions Prescriptions: No Action vitamin B complex Tablet 1 tab PO DAILY RF: 0 furosemide 20 mg Tablet 20 mg PO QAM RF: 0 lisinopril 2.5 mg Tablet 2.5 mg PO QAM RF: 0 metformin 1,000 mg tablet 1,000 mg PO BID RF: 0 metoprolol succinate 100 mg tablet extended release 24 hr 100 mg PO HS RF: 0 [place]-3 Fish Oil 300-1,000 mg Capsule 1 cap PO BID RF: 0 ascorbic acid (vitamin C) 1,000 mg Tablet 4 g PO BID RF: 0 vitamin A 10,000 unit Capsule 25,000 unit PO DAILY RF: 0 Referrals Referrals: Waqar Beltrán MD [Primary Care Provider] - Discharge Problem: Pneumonia Qualifiers: Pneumonia type: due to unspecified organism Laterality: unspecified laterality Lung location: unspecified part of lung Qualified Code(s): J18.9 - Pneumonia, unspecified organism Leukocytosis Qualifiers: Leukocytosis type: unspecified Qualified Code(s): D72.829 - Elevated white blood cell count, unspecified The scribe's documentation has been prepared under my direction and personally reviewed by me in its entirety. I confirm that the note above accurately reflects all work, treatment, procedures, and medical decision making performed by me.
[2019-09-13 22:11] LABS: BUN Creatinine Ratio 18.8 (10-20); Blood Urea Nitrogen 26 mg/dl (7-18); Carbon Dioxide 28 mmol/L (21-32); Chloride 104 mmol/L (98-107); Creatinine Clr Calc Pharmacy 53.8 ml/min; Est GFR (African American) 57.3; Est GFR (Non-African American) 49.4; Glucose 98 mg/dl (70-99); Potassium 3.8 mmol/L (3.5-5.1); Sodium 136 mmol/L (136-145)
[2019-09-13 22:16] LABS: Troponin I < 0.015 ng/ml (0-0.045)
[2019-09-13] MEDS ORDERED: OPTIRAY 320 125ml IV PRN (22:23)
[2019-09-13 22:29] LABS: Hematocrit (blood only) 28.2 % (42-52); Hemoglobin 8.7 g/dL (14.0-18.0); Mean Corpuscular Hemoglobin 27.1 pg (25-34); Mean Corpuscular Hgb Conc 30.9 g/dL (32-36); Mean Corpuscular Volume 87.9 fL (80-100); Nucleated RBC # (auto) 0.26 K/uL (0-0); Nucleated RBC % (auto) 0.6 %; Platelet Count 122 K/uL (130-400); RDW Coefficient of Variation 23.3 % (11.5-14.5); RDW Standard Deviation 72.3 fL (36.4-46.3); Red Blood Count 3.21 M/uL (4.7-6.1); White Blood Count 43.49 K/uL (4.8-10.8)
[2019-09-13 22:31] LABS: Anisocytosis Present; Ovalocytes 1+; Platelet Estimate Decreased (Normal); Tear Drop Cells 1+
[2019-09-13 22:35] LABS: ALC (manual) 4.13 K/uL (1.2-3.4); Blast # (manual) 3.39 K/uL (0-0); Blast Cells % (manual) 7.8 %; Lymphocytes # (manual) 4.13 K/uL (1.2-3.4); Lymphocytes % (manual) 9.5 %; Monocytes # (manual) 29.96 K/uL (0.11-0.59); Monocytes % (manual) 68.9 %; Neutrophils % (manual) 13.8 %
--- NOTE | 2019-09-13 22:48 | CT Scan Report ---
CHEST CTA for PULMONARY ARTERIES CT DOSE: 696.39 mGy.cm HISTORY: Cough. Recurrent pneumonia. Shortness of breath. Assess for embolus. TECHNIQUE: Multiaxial CT images of the chest were performed following the intravenous administration of contrast to evaluate the pulmonary arteries. Maximal intensity projection images were also obtaine d. A dose lowering technique was utilized adhering to the principles of ALARA. COMPARISON STUDY: Chest 09/13/2018. Abdomen and pelvis CT 02/23/2012. FINDINGS: A 2.2 cm calcified nodule abutting the right hepatic dome. This is likely benign. The splee n remains enlarged. This is only partially imaged on this study. There are a few prominent mediastina l lymph nodes. These may be reactive. The heart is mildly enlarged. There is a left-sided pacemaker. No pleural or pericardial effusions. Normal esophagus. Old, healed right-sided rib fractures. Normal caliber thoracic aorta. No significant contrast within the aorta to evaluate for a dissection. No teofilo ling defects within the pulmonary arteries to suggest pulmonary embolus. No pneumothorax. Focal dense consolidation within the left upper lobe posteriorly with a few air bronchograms. There is a single partially opacified left upper lobe bronchus best seen on image 185. A 3 mm nodule within the right l ower lobe on image 55. A few punctate calcified granulomas within the right lung. There is a 7 mm lob ular nodule within the right upper lobe on image 200. A 4 mm nodule within the right middle lobe on i mage 126. Bibasilar groundglass airspace opacity with a few small focal areas of consolidation within the lower lobes medially. Mild emphysema. IMPRESSION: 1. Focal dense consolidation within the left upper lobe posteriorly. There are also bibasilar groundg lass airspace opacities with a few small focal areas of consolidation within the bilateral lower lobe s medially. Findings favor a multifocal pneumonia. 2-[address] follow-up recommended to ensure resolution. 2. There is a single partially opacified left upper lobe bronchus as described above. This bears [place] on future examinations. 3. No evidence for pulmonary embolus. 4. Stable splenomegaly. 5. A few prominent lymph nodes. These may be reactive. 6. A few subcentimeter indeterminate pulmonary nodules as described above with the largest in the rig ht upper lobe measuring 7 mm. Please refer to the chart below for recommended follow-up. Please refer to below summary of Rafner criteria recommendations for follow-up of incidental CT n odules (Anibal Pavon, Guidelines for management of small pulmonary nodules detected on CT scans: A dianne nunes from the Fleischner Society, Radiology 237: [phone].) SOLID NODULES Solitary nodule size: <6 mm * Low risk patients: no follow-up needed * high risk patients: optional CT at 12 months Solitary nodule size: 6-8 mm * Low risk patients: follow-up at 6-12 months, then consider further follow-up at 18-24 months * high risk patients: initial follow-up CT at 6-12 months and then at 18-24 months if no change Solitary nodule size: >8 mm * either low or high risk patients - consider follow-up CT at 3 months, and/or CT-PET, and/or biopsy Multiple nodules size: <6 mm * Low risk patients: no routine follow-up * high risk patients: optional CT at 12 months Multiple nodules size: 6-8 mm * Low risk patients: follow-up at 3-6 months, then consider further follow-up at 18-24 months * high risk patients: follow-up at 3-6 months, then at 18-24 months if no change Multiple nodules size: >8 mm * Low risk patients: follow-up at 3-6 months, then consider further follow-up at 18-24 months * high risk patients: follow-up at 3-6 months, then at 18-24 months if no change Note: newly detected indeterminate nodule in persons 35 years of age or older. * Low risk patients: minimal or absent history of smoking and/or other known risk factors * high risk patients: history of smoking or of other known risk factors (e.g. first degree relative with lung cancer, or exposure to asbestos, radon, uranium) * if a nodule up to 8 mm is partly solid or is ground glass further follow-up is required after 24 m onths to exclude possible slow growing adenocarcinoma (WHITLEY) SUBSOLID NODULES Solitary pure ground-glass nodule * nodule size <6 mm - no CT follow-up required * nodule size >=6 mm - follow-up CT at 6-12 months, then every 2 years until 5 years Solitary part-solid nodule * nodule size <6 mm - no CT follow-up required * nodule size >=6 mm - follow-up CT at 3-6 months. If unchanged, and solid component remains <6 mm, then annual follow-up for 5 years Multiple subsolid nodules * nodule size <6 mm - follow-up CT at 3-6 months, consider further follow-up at 2 and 4 years if sta ble * nodule size >=6 mm - follow-up CT at 3-6 months, subsequent management based on the most suspiciou s nodule(s) ACT 112: Negative or not required by law. Electronically signed by: Lex Rashid M.D. 09/13/2019 10:47 PM
[2019-09-13] MEDS ORDERED: PIPERACILL/TAZOBAC CONSULT ACTIVE PRN (22:52)
[2019-09-13] MEDS ORDERED: PIPERACILLIN/TAZOBACTAM 4.5 GM/120 ML BAG IV ONE (22:52)
[2019-09-13 23:11] LABS: Magnesium 2.6 mg/dl (1.8-2.4)
[2019-09-14 00:05] LABS: Influenza A virus by PCR Neg for Influ A (Neg); Influenza B virus by PCR Neg for Influ B (Neg)
[2019-09-14] MEDS ORDERED: lisinopriL 5 MG TAB PO ONE (00:28)
--- NOTE | 2019-09-14 00:29 | History & Physical Report ---
Date of Service September 14, 2019 Assessment & Plan (1) HCAP (healthcare-associated pneumonia): hx MDS[place] [facility] [place] Failed outpatient treatment Rule out aspiration pneumonia No sepsis Pulmonary nodules on CT chronic systolic heart failure secondary to ischemic cardiomyopathy (EF 27%, TTE 2019) sp ICD, Patient euvolemic hx CAD/silent [place] as per records hypertension, stable history NHL sp chemotherapy, currently in remission chronic thrombocytopenia secondary to MDS history steroid-induced hyperglycemia on metformin Rx as per records, recent outpatient hemoglobin A1c off 5.20 August 2019 past tobacco abuse [facility] Zosyn Aspiration precautions Swallow eval Outpatient follow-up imaging for pulmonary nodules on CT DVT prophylaxis. SCDs RE chronic thrombocytopenia (hx of GI bleed with home aspirin as per patient) Full code History of Present Illness Chief Complaint: Persistent cough Primary Care Provider: Waqar Beltrán MD History obtained from patient and records. Medical history significant for chronic systolic heart failure secondary to ischemic cardiomyopathy (EF 27%, TTE 2019) sp ICD, hx CAD/silent [place] as per records, hypertension, history NHL sp chemotherapy, history of myelodysplastic syndrome (chronic anemia baseline hemoglobin 8-9) intermittent [place]ropoietin [place] [facility] [place] 2 [place], chronic thrombocytopenia, DARIUS on CPAP, history steroid-induced hyperglycemia metformin Rx as per records, past tobacco abuse. 2 weeks ago, patient seen at PCPs office for productive cough symptoms sometimes blood-tinged. Patient also noted cough somewhat worse on lying down. Outpatient CXR showed : Patchy and linear airspace disease in the right lung base could represent atelectasis or infiltrate in the proper clinical setting. Patient started on Doxycycline course which helped cough a little as per patient. Patient traveled to [place] for a vacation interim. Patient seen by ENT outpatient a few days ago for swallowing issues. Impression was postnasal drip. Patient brought to ER by because of worsening cough symptoms no chest pain and S OB. No fever no chills. 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 Allergies Allergy/AdvReac Type Severity Reaction Status Date / Time Arnica (Arnica judy) AdvReac Difficulty Unverified 09/13/19 23:29 Breathing oyster Allergy Mild Vomiting Uncoded 12/29/18 09:21 Home Medications Home Medications Medication Instructions Recorded Confirmed Type furosemide 20 mg PO QAM 12/19/18 09/13/19 History lisinopril 2.5 mg PO QAM 12/19/18 09/13/19 History vitamin B complex 1 tab PO DAILY 12/19/18 09/13/19 History ascorbic acid (vitamin C) 4 g PO BID 09/13/19 09/13/19 History metformin 1,000 mg PO BID 09/13/19 09/13/19 History metoprolol succinate 100 mg PO HS 09/13/19 09/13/19 History [id number] oil [[place]-3 1 cap PO BID 09/13/19 09/13/19 History Fish Oil] vitamin A 25,000 unit PO DAILY 09/13/19 09/13/19 History Past Med/Surg History Medical History Diabetes mellitus, type 2 Hearing deficit Hypertension ICD (implantable cardioverter-defibrillator) in place 2008--Medtronic 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 Beliefs That Will Affect Care: None Current Living Situation: Spouse Other Information That Helps Us Care for You: No Feels Safe at Home: Yes Smoking Status: Former smoker Second Hand Exposure: No ; Hx Alcohol Use: No Hx Substance Use: No Review of Systems Review of Systems: As per HPI, all 10 systems reviewed, all other ROS negative Physical Exam Physical Exam: GENERAL: Comfortable, no respiratory distress SKIN: Pallor , warm HEENT: Alopecia, bespectacled, pale palpebral conjunctivae, no ptosis, dry buccal mucosa NECK : Supple, no tenderness CHEST : Decreased breath sounds , no tenderness HEART : RRR, systolic murmur ABDOMEN: Some distention, nontender EXTREMITIES : No LE swelling/tenderness, no other conspicuous deformities noted NEUROLOGIC : Coherent, no facial asymmetry, no other gross focality Results & Data Vital Signs (Past 12 Hours) Vital Signs Temp Pulse Resp BP Pulse Ox 09/14/19 00:10 67 17 96 09/14/19 00:00 66 19 119/58 L 94 09/13/19 23:50 68 18 93 09/13/19 23:40 66 17 09/13/19 23:31 68 18 107/51 L 09/13/19 23:30 66 14 09/13/19 23:20 66 19 09/13/19 23:10 67 16 09/13/19 23:01 66 14 126/65 09/13/19 23:00 64 16 09/13/19 22:50 67 17 95 09/13/19 22:40 66 18 95 09/13/19 22:34 69 16 112/57 L 96 09/13/19 22:33 71 15 112/57 L 97 09/13/19 22:10 67 19 96 09/13/19 22:00 73 16 97 09/13/19 21:50 67 16 95 09/13/19 21:40 67 18 97 09/13/19 21:37 69 17 97 09/13/19 20:19 36.8 C 65 20 125/70 97 Laboratory Results Laboratory Results WBC 43.49 K/uL (4.8-10.8) H* 09/13/19 21:41 RBC 3.21 M/uL (4.7-6.1) L 09/13/19 21:41 Hgb 8.7 g/dL (14.0-18.0) L 09/13/19 21:41 Hct 28.2 % (42-52) L 09/13/19 21:41 MCV 87.9 fL (80-100) 09/13/19 21:41 MCH 27.1 pg (25-34) 09/13/19 21:41 MCHC 30.9 g/dL (32-36) L 09/13/19 21:41 RDW Std Deviation 72.3 fL (36.4-46.3) H 09/13/19 21:41 RDW Coeff of Vic 23.3 % (11.5-14.5) H 09/13/19 21:41 Plt Count 122 K/uL (130-400) L 09/13/19 21:41 Absolute Nucleated RBC 0.26 K/uL (0-0) H 09/13/19 21:41 Nucleated RBC % (auto) 0.6 % 09/13/19 21:41 Neutrophils % (Manual) 13.8 % 09/13/19 21:41 Lymphocytes % (Manual) 9.5 % 09/13/19 21:41 Monocytes % (Manual) 68.9 % 09/13/19 21:41 Blast Cells % (Manual) 7.8 % 09/13/19 21:41 Neutrophils # (Manual) 6.00 K/uL (1.4-6.5) 09/13/19 21:41 Total Absolute Neuts 6.00 K/uL (1.4-6.5) 09/13/19 21:41 Lymphocytes # (Manual) 4.13 K/uL (1.2-3.4) H 09/13/19 21:41 Total Abs Lymphocytes 4.13 K/uL (1.2-3.4) H 09/13/19 21:41 Monocytes # (Manual) 29.96 K/uL (0.11-0.59) H 09/13/19 21:41 Blast Cells # (Man) 3.39 K/uL (0-0) H 09/13/19 21:41 Platelet Estimate Decreased (Normal) L 09/13/19 21:41 Anisocytosis Present 09/13/19 21:41 Tear Drop Cells 1+ 09/13/19 21:41 Ovalocytes 1+ 09/13/19 21:41 Sodium 136 mmol/L (136-145) 09/13/19 21:41 Potassium 3.8 mmol/L (3.5-5.1) 09/13/19 21:41 Chloride 104 mmol/L (98-107) 09/13/19 21:41 Carbon Dioxide 28 mmol/L (21-32) 09/13/19 21:41 Anion Gap 4.0 (3-11) 09/13/19 21:41 BUN 26 mg/dl (7-18) H 09/13/19 21:41 Creatinine 1.37 mg/dl (0.6-1.4) 09/13/19 21:41 Est Cr Clr Drug Dosing 53.8 ml/min 01/29/20 21:41 Est GFR ( Amer) 57.3 09/13/19 21:41 Est GFR (Non-Af Amer) 49.4 09/13/19 21:41 BUN/Creatinine Ratio 18.8 (10-20) 09/13/19 21:41 Glucose 98 mg/dl (70-99) 09/13/19 21:41 Calcium 9.0 mg/dl (8.5-10.1) 09/13/19 21:41 Magnesium 2.6 mg/dl (1.8-2.4) H 09/13/19 21:41 Troponin I < 0.015 ng/ml (0-0.045) 09/13/19 21:41 Influenza Type A (PCR) Neg for Influ A (Neg) 09/13/19 23:28 Influenza Type B (PCR) Neg for Influ B (Neg) 09/13/19 23:[address] chest: 1. Focal dense consolidation within the left upper lobe posteriorly. There are also bibasilar groundglass airspace opacities with a few small focal areas of consolidation within the bilateral lower lobes medially. Findings favor a multifocal pneumonia. 2-[address] follow-up recommended to ensure res olution. 2. There is a single partially opacified left upper lobe bronchus as described above. This bears watching on future examinations. 3. No evidence for pulmonary embolus. 4. Stable splenomegaly. 5. A few prominent lymph nodes. These may be reactive. 6. A few subcentimeter indeterminate pulmonary nodules as described above with the largest in the right upper lobe measuring 7 mm. Please refer to the chart below for recommended follow-up. Please refer to below summary of Fleischner criteria recommendations for follow- up of incidental CT nodules (Anibal Pavon, Guidelines for management of small pulmonary nodules detected on CT scans: A statement from the Fleischner Society, Radiology 237: [phone].) SOLID NODULES Solitary nodule size: <6 mm * Low risk patients: no follow-up needed * high risk patients: optional CT at 12 months Solitary nodule size: 6-8 mm * Low risk patients: follow-up at 6-12 months, then consider further follow-up at 18-24 months * high risk patients: initial follow-up CT at 6-12 months and then at 18-24 months if no change Solitary nodule size: >8 mm * either low or high risk patients - consider follow-up CT at 3 months, and/or CT-PET, and/or biopsy Multiple nodules size: <6 mm * Low risk patients: no routine follow-up * high risk patients: optional CT at 12 months Multiple nodules size: 6-8 mm * Low risk patients: follow-up at 3-6 months, then consider further follow-up at 18-24 months * high risk patients: follow-up at 3-6 months, then at 18-24 months if no change Multiple nodules size: >8 mm * Low risk patients: follow-up at 3-6 months, then consider further follow-up at 18-24 months * high risk patients: follow-up at 3-6 months, then at 18-24 months if no change Note: newly detected indeterminate nodule in persons 35 years of age or older. * Low risk patients: minimal or absent history of smoking and/or other known risk factors * high risk patients: history of smoking or of other known risk factors (e.g. first degree relative with lung cancer, or exposure to asbestos, radon, uranium) * if a nodule up to 8 mm is partly solid or is ground glass further follow-up is required after 24 months to exclude possible slow growing adenocarcinoma (WHITLEY) SUBSOLID NODULES Solitary pure ground-glass nodule * nodule size <6 mm - no CT follow-up required * nodule size >=6 mm - follow-up CT at 6-12 months, then every 2 years until 5 years Solitary part-solid nodule * nodule size <6 mm - no CT follow-up required * nodule size >=6 mm - follow-up CT at 3-6 months. If unchanged, and solid component remains <6 mm, then annual follow-up for 5 years Multiple subsolid nodules * nodule size <6 mm - follow-up CT at 3-6 months, consider further follow-up at 2 and 4 years if stable * nodule size >=6 mm - follow-up CT at 3-6 months, subsequent management based on the most suspicious nodule(s) EKG as per my interpretation rate 70, LAD, LAFB, LBBB
[2019-09-14] MEDS ORDERED: ACETAMINOPHEN 325 MG TAB PO PRN (01:22)
[2019-09-14] MEDS ORDERED: SODIUM CHLORIDE 0.9% 500 ML IV ONE (01:22)
[2019-09-14 06:20] LABS: Mean Corpuscular Hgb Conc 32.6 g/dL (32-36)
[2019-09-14 06:44] LABS: BUN Creatinine Ratio 17.8 (10-20); Calcium 8.4 mg/dl (8.5-10.1); Creatinine Clr Calc Pharmacy 58.7 ml/min; Est GFR (African American) 63.3; Est GFR (Non-African American) 54.7; Potassium 3.5 mmol/L (3.5-5.1)
[2019-09-14] MEDS: PIPERACILLIN/TAZOBACTAM 3.375 GM in DEXTROSE 5% 100 ML IV SCH ×3 (06:45→22:22)
[2019-09-14 06:59] LABS: Hematocrit (blood only) 24.2 % (42-52); Hemoglobin 7.9 g/dL (14.0-18.0); Mean Corpuscular Hemoglobin 28.6 pg (25-34); Mean Corpuscular Volume 87.7 fL (80-100); Nucleated RBC # (auto) 0.18 K/uL (0-0); Nucleated RBC % (auto) 0.5 %; Platelet Count 83 K/uL (130-400); RDW Coefficient of Variation 23.7 % (11.5-14.5); RDW Standard Deviation 72.1 fL (36.4-46.3); Red Blood Count 2.76 M/uL (4.7-6.1); White Blood Count 33.26 K/uL (4.8-10.8)
[2019-09-14 07:02] LABS: ALC (manual) 2.26 K/uL (1.2-3.4); ANC (manual) 4.22 K/uL (1.4-6.5); Anisocytosis Present; Basophils # (manual) 0.57 K/uL (0-0.2); Basophils % (manual) 1.7 %; Blast # (manual) 12.41 K/uL (0-0); Blast Cells % (manual) 37.3 %; Eosinophils # (manual) 0.27 K/uL (0-0.5); Eosinophils % (manual) 0.8 %; Hypogranular Neutrophils 1+; Lymphocytes # (manual) 2.26 K/uL (1.2-3.4); Lymphocytes % (manual) 6.8 %; Metamyelocytes # (manual) 0.27 K/uL (0-0); Metamyelocytes % (manual) 0.8 %; Monocytes # (manual) 13.27 K/uL (0.11-0.59); Monocytes % (manual) 39.9 %; Neutrophils # (manual) 4.22 K/uL (1.4-6.5); Neutrophils % (manual) 12.7 %; Toxic Vacuolation 1+
[2019-09-14] MEDS: METOPROLOL SUCC 50MG EXT REL TAB PO SCH (07:59)
--- NOTE | 2019-09-14 16:59 | Pulmonary Consultation ---
Date of Consultation September 14, 2019 Assessment & Plan (1) Pneumonia: -- Multilobar pneumonia Patient sick as his CAT scan Seems like walking pneumonia. Continue with antibiotics Follow-up sputum culture, will order urine Legionella and mycoplasma IgM QTC is 469, would recommend azithromycin or levofloxacin to be given for [address] chest personally reviewed: Shows dense consolidation of the right upper lobe, bilateral lower lobe consolidation as well goes with multilobar pneumonia. There is also possible partially of obstruction of the upper lobe bronchus. --Partial obstruction of the upper lobe bronchus Questionable postobstructive pneumonia Continue with antibiotics for the time being Would repeat the CAT scan in 4 to 6 weeks If it is still present patient will need a bronchoscopy and possible biopsy The option of doing bronchoscopy tomorrow was also given to the patient. Patient states that he would rather wait 4 to 6 weeks repeat a CAT scan able to still present then go ahead with bronchoscopy. --Leukocytosis This is likely secondary to his underlying MDS on top of infection Monitor -- Systolic CHF with AICD compensated From pulmonary perspective patient can be transitioned to p.o. antibiotics as of tomorrow and given a total course of 5 days of antibiotics. Patient needs follow-up CT chest to be done in 4 to 6 weeks to see resolution of pneumonia and if the left upper bronchus is still obstructed. In latter case patient will need bronchoscopy. We will sign off please recall if needed. Thank you for the consult. Laterality: unspecified laterality Lung location: unspecified part of lung Pneumonia type: due to unspecified organism Qualified Code(s): J18.9 - Pneumonia, unspecified organism (2) Myelodysplastic syndrome: (3) Leukocytosis: Leukocytosis type: unspecified Qualified Code(s): D72.829 - Elevated white blood cell count, unspecified History of Present Illness Attending Physician: Yvette Cramer, History of Present Illness 79-year-old with past medical history of systolic CHF ejection fraction 2530% TTE done 2019 status post ICD, history of coronary artery disease, hypertension, non-Hodgkin's lymphoma status post chemotherapy x2, myelodysplastic syndrome with intermittent erythropoietin infusion [place] [facility] [place] 2 weeks, chronic thrombocytopenia, DARIUS on CPAP comes to the hospital with complaints of cough which is been going on since last 10 days. Patient has a ring of yellowish phlegm. Which was occasionally blood-tinged and no more blood-tinged. Denied any chest pain, no fever or chills, no headache, no nausea or vomiting. No dysuria, no diarrhea. Denies any dizziness, no blurry vision. No weight loss, no night sweats. Did have runny nose but no tearing from the eyes. Patient did travel to [place] recently and he says that he started to have this issues once he was traveling back from [place] in the flight. No personal history of tuberculosis. No known exposure to anyone with TB. Social history: [id number] smoking history quit in 1979, social alcohol, denies any illicit drug use No family history or personal history of lung cancer. Personal history of non-Hodgkin's lymphoma last chemo being 7 years ago Allergies Allergy/AdvReac Type Severity Reaction Status Date / Time Arnica (Arnolivia kim) AdvReac Difficulty Unverified 09/13/19 23:29 Breathing oyster Allergy Mild Vomiting Uncoded 12/29/18 09:21 Home Medications Home Medications Medication Instructions Recorded Confirmed Type furosemide 20 mg PO QAM 12/19/18 09/13/19 History lisinopril 2.5 mg PO QAM 12/19/18 09/13/19 History vitamin B complex 1 tab PO DAILY 12/19/18 09/13/19 History ascorbic acid (vitamin C) 4 g PO BID 09/13/19 09/13/19 History metformin 1,000 mg PO BID 09/13/19 09/13/19 History metoprolol succinate 100 mg PO HS 09/13/19 09/13/19 History [id number]-epa-fish oil [[place]-3 1 cap PO BID 09/13/19 09/13/19 History Fish Oil] vitamin A 25,000 unit PO DAILY 09/13/19 09/13/19 History Patient History Medical History Diabetes mellitus, type 2 Hearing deficit Hypertension ICD (implantable cardioverter-defibrillator) in place 2008--Medtronic 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 Foley Sleep apnea cpap Surgical History History of angioplasty History of colonoscopy Family History Family/Other Family hx of colon cancer nephew at 32 Other No family history of adverse response to anesthesia Social History Preferred Language: Burundian Communication Ability: Effective Pulverizer Feeder Required: No Beliefs That Will Affect Care: None Current Living Situation: Spouse Other Information That Helps Us Care for You: No Feels Safe at Home: Yes Smoking Status: Former smoker Second Hand Exposure: No ; Hx Alcohol Use: No Hx Substance Use: No Review of Systems Review of Systems: All systems reviewed & are unremarkable except as noted in HPI & below Physical Exam Physical Exam: Constitutional: No acute distress HEENT: EOMI, PERRLA Respiratory system: Good air entry bilaterally, positive left lower and right upper lobe crackles, no wheeze, no rhonchi CVS: S1-S2 positive, no murmurs or gallops Abdomen: Soft, nontender, nondistended, positive bowel sounds x4 Extremities: +2 pulses bilaterally radialis/ dorsalis pedis, no cyanosis, no e saloni, no clubbing Neuro: Awake alert oriented x3 Psych: Normal mood and affect G/U: No Sanchez Skin: no rashes, warm and dry Lymphatic: no cervical or axillary lymphadenopathy Results & Data ([facility]) Vital Signs (Past 12 Hours) Vital Signs Temp Pulse Resp BP Pulse Ox 09/14/19 15:47 36.5 C 66 20 117/67 97 09/14/19 07:30 36.6 C 67 20 116/66 95 09/14/19 05:18 09/14/19 05:18 PG Care Time/CCT Total # of Minutes Spent Total Time Spent with Patient: Total time spent is greater than 50% in coordination of care (as documented) at patient's floor/unit and/or counseling patient: [place] [address] Initial Inpt Care Lvl 3 Patient Type New Diagnoses Pneumonia J18.9 Laterality: unspecified laterality Lung location: unspecified part of lung Pneumonia type: due to unspecified organism Myelodysplastic syndrome D46.9 Leukocytosis D72.829 Leukocytosis type: unspecified
--- NOTE | 2019-09-14 17:22 | Electrocardiogram Report ---
Test Reason : Blood Pressure : / mmHG Vent. Rate : 069 BPM Atrial Rate : 069 BPM P-R Int : 202 ms QRS Dur : 168 ms QT Int : 438 ms P-R-T Axes : 058 -57 085 degrees QTc Int : 469 ms Normal sinus rhythm Possible Left atrial enlargement Left axis deviation Left bundle branch block Abnormal ECG When compared with ECG of 23-FEB-2012 03:16, Left bundle branch block is now Present Confirmed by Brandon Gonzalez ([id number]) on 09/14/2019 5:21:30 PM Referred By: REFERRED SELF Confirmed By:Riley Gonzalez
--- NOTE | 2019-09-14 18:11 | Hospitalist Progress Note ---
Date of Service September 14, 2019 Assessment & Plan (1) Pneumonia: Improved on Zosyn with preliminary blood cultures negative. Pt is clinically well and feels back to baseline. CT reveals possible post- obstructive pneumonia, consulted Pulmonology. (2) Leukocytosis: Normal WBC two weeks ago, so likely related to stress and infection. However, will also get a path review with h/o lymphoma and MDS. Trend CBC in am. (3) Myelodysplastic syndrome: Cont management per [facility] Oncology. Currently gets epo shots per his report. (4) DVT prophylaxis: SCD/ambulation Full Dispo-likely to home in am. Yvette Cramer DO [facility] Hospitalist Subjective 79 yoM nonsmoker presented with acute respiratory symptoms just prior to arrival. This was a culmination of a couple of weeks of off and on respiratory symptoms. He had recently taken a course of abx, and then traveled to [place] and back again. Today he feels back to himself and is afebrile. He denies any SOB or chest pain and is tolerating food without any issue at all. Review of Systems Review of Systems: All systems reviewed & are unremarkable except as noted in Subjective Physical Exam Physical Exam: CONSTITUTIONAL: WNWD, vitals as above, generally well- appearing EYES: normal conjunctivae, no scleral icterus ENT: oropharynx clear, MMM RESPIRATORY: clear to auscultation bilaterally, no crackles, rales or wheezes, normal respiratory effort CARDIOVASCULAR: regular rate and rhythm, S1 and 2 heard without murmurs, gallops or rubs, no JVD, no peripheral edema GASTROINTESTINAL: soft, nontender, nondistended MUSCULOSKELETAL: strength 5/5 throughout, head is normocephalic and atraumatic SKIN: warm and dry NEUROLOGIC: CN 2-12 grossly intact, no sensory deficit, normal cognition, normal speech PSYCHIATRIC: alert cooperative and oriented to person, place and time. Results & Data ([facility]) Vital Signs (Past 12 Hours) Vital Signs Temp Pulse Resp BP Pulse Ox 09/14/19 15:47 36.5 C 66 20 117/67 97 09/14/19 07:30 36.6 C 67 20 116/66 95 Laboratory Results Short CBC 09/13/19 09/14/19 Range/Units 21:41 05:18 WBC 43.49 H* 33.26 H* D (4.8-10.8) K/uL Hgb 8.7 L 7.9 L (14.0-18.0) g/dL Hct 28.2 L 24.2 L (42-52) % Plt Count 122 L 83 L (130-400) K/uL BMP 09/13/19 09/14/19 21:41 05:18 Sodium 136 137 Potassium 3.8 3.5 Chloride 104 105 Carbon Dioxide 28 25 BUN 26 H 22 H Creatinine 1.37 1.26 Glucose 98 101 H Calcium 9.0 8.4 L Cardiac Enzymes 09/13/19 Range/Units 21:41 Troponin I < 0.015 (0-0.045) ng/ml Medications Administered Current Inpatient Medications Acetaminophen (Tylenol) 650 mg PO Q4H PRN PRN Reason: pain/fever Stop: 10/14/19 01:21 Piperacillin Sod/Tazobactam (Sod 3.375 gm/ Dextrose) 115 mls @ 28.75 mls/hr IV Q8H [facility]; Protocol Stop: 09/21/19 05:59 Last Admin: 09/14/19 13:58 Dose: 28.8 mls/hr Documented by: Lisinopril (Zestril) 2.5 mg PO HS [facility] Stop: 10/14/19 20:59 Metoprolol Succinate (Toprol Xl) 100 mg PO DAILY [facility] Stop: 10/14/19 08:59 Last Admin: 09/14/19 07:59 Dose: 50 mg Documented by: Miscellaneous Information (Consult) 1 ea N/A UD PRN PRN Reason: Consult Stop: 10/13/19 22:51 (1) Pneumonia Laterality: unspecified laterality Lung location: unspecified part of lung Pneumonia type: due to unspecified organism Qualified Code(s): J18.9 - Pneumonia, unspecified organism (2) Leukocytosis Leukocytosis type: unspecified Qualified Code(s): D72.829 - Elevated white blood cell count, unspecified
[2019-09-14] MEDS ORDERED: METOPROLOL SUCC 50MG EXT REL TAB PO SCH (21:00)
[2019-09-15] MEDS ORDERED: DEXTROSE 50% 50 ML SYRINGE IV PRN (00:01)
[2019-09-15] MEDS ORDERED: GLUCOSE 10 TABS/TUBE PO PRN (00:01)
[2019-09-15] MEDS ORDERED: GLUCOSE 40% GEL 15 GM TUBE PO PRN (00:01)
[2019-09-15] MEDS ORDERED: CARBOHYDRATES FOR HYPOGLYCEMIA PO PRN (00:01)
[2019-09-15] MEDS ORDERED: GLUCAGON FOR INJ 1 MG VIAL SQ PRN (00:01)
[2019-09-15] MEDS ORDERED: levoFLOXacin 750 MG TAB PO SCH (06:00)
[2019-09-15 06:51] LABS: BUN Creatinine Ratio 15.9 (10-20); Calcium 8.9 mg/dl (8.5-10.1); Creatinine Clr Calc Pharmacy 52.8 ml/min; Est GFR (African American) 55.8; Est GFR (Non-African American) 48.1; Potassium 3.8 mmol/L (3.5-5.1)
[2019-09-15 07:14] LABS: ALC (manual) 5.42 K/uL (1.2-3.4); ANC (manual) 5.42 K/uL (1.4-6.5); Anisocytosis Present; Blast # (manual) 2.55 K/uL (0-0); Blast Cells % (manual) 7.2 %; Hematocrit (blood only) 26.7 % (42-52); Hemoglobin 8.4 g/dL (14.0-18.0); Hypochromasia Present; Lymphocytes # (manual) 5.42 K/uL (1.2-3.4); Lymphocytes % (manual) 15.3 %; Mean Corpuscular Hemoglobin 27.5 pg (25-34); Mean Corpuscular Hgb Conc 31.5 g/dL (32-36); Mean Corpuscular Volume 87.3 fL (80-100); Monocytes # (manual) 21.41 K/uL (0.11-0.59); Monocytes % (manual) 60.4 %; Myelocytes # (manual) 0.64 K/uL (0-0); Myelocytes % (manual) 1.8 %; Neutrophils # (manual) 5.42 K/uL (1.4-6.5); Neutrophils % (manual) 15.3 %; Nucleated RBC # (auto) 0.18 K/uL (0-0); Nucleated RBC % (auto) 0.5 %; Ovalocytes 1+; Platelet Count 76 K/uL (130-400); Platelet Estimate Decreased (Normal); RDW Coefficient of Variation 23.6 % (11.5-14.5); RDW Standard Deviation 71.9 fL (36.4-46.3); Red Blood Count 3.06 M/uL (4.7-6.1); Tear Drop Cells 1+; White Blood Count 35.44 K/uL (4.8-10.8)
[2019-09-15] MEDS: METOPROLOL SUCC 50MG EXT REL TAB PO SCH (08:01)
--- NOTE | 2019-09-15 12:54 | Discharge Summary ---
Date of Service September 15, 2019 Admission HPI Per Admitting Provider History obtained from patient and records. Medical history significant for chronic systolic heart failure secondary to ischemic cardiomyopathy (EF 27%, TTE 2019) sp ICD, hx CAD/silent NH as per records, hypertension, history NHL sp chemotherapy, history of myelodysplastic syndrome (chronic anemia baseline hemoglobin 8-9) intermittent erythropoietin infusion outpatient at [facility] every 2 weeks, chronic thrombocytopenia, DARIUS on CPAP, history steroid-induced hyperglycemia metformin Rx as per records, past tobacco abuse. 2 weeks ago, patient seen at PCPs office for productive cough symptoms sometimes blood-tinged. Patient also noted cough somewhat worse on lying down. Outpatient CXR showed : Patchy and linear airspace disease in the right lung base could represent atelectasis or infiltrate in the proper clinical setting. Patient started on Doxycycline course which helped cough a little as per patient. Patient traveled to [place] for a vacation interim. Patient seen by ENT outpatient a few days ago for swallowing issues. Impression was postnasal drip. Patient brought to ER by because of worsening cough symptoms no chest pain and S OB. No fever no chills. 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 Admission Exam Per Admitting Provider GENERAL: Comfortable, no respiratory distress SKIN: Pallor , warm HEENT: Alopecia, bespectacled, pale palpebral conjunctivae, no ptosis, dry buccal mucosa NECK : Supple, no tenderness CHEST : Decreased breath sounds , no tenderness HEART : RRR, systolic murmur ABDOMEN: Some distention, nontender EXTREMITIES : No LE swelling/tenderness, no other conspicuous deformities noted NEUROLOGIC : Coherent, no facial asymmetry, no other gross focality Principal Diagnosis Pneumonia MDS Discharge Data Allergies Allergy/AdvReac Type Severity Reaction Status Date / Time [place] AdvReac Difficulty Unverified 09/13/19 23:29 Breathing oyster Allergy Mild Vomiting Uncoded 12/29/18 09:21 Consultations 09/13/19 22:59 ED Decision to Admit Stat 09/14/19 10:45 Consult Pulmonology Routine 09/15/19 12:06 Burn CD for patient Routine Ordered Studies 09/13/19 21:21 CT angio chest PE protocol Stat Hospital Course (1) Pneumonia: (2) Leukocytosis: (3) Myelodysplastic syndrome: (4) CKD (chronic kidney disease), stage III: 79-year-old man with history of MDS presented to the ER with acute onset coughing and shortness of breath. For the past two weeks he had been for productive cough symptoms by primary care including a course of antibiotics. He also recently had traveled to and from [place]. Work-up in the ER at [facility] included a chest CT angiogram which was negative for pulmonary embolus. It revealed focal dense consolidation in the left upper lobe posteriorly in additi on to bibasilar groundglass opacities with a few small areas of consolidation within the bilateral lower lobes medially. There was also a single partially opacified left upper lobe bronchus and a few subcentimeter indeterminate pulmonary nodules with the largest in the right upper lobe measuring 7 mm. This was consistent with a multifocal pneumonia and a repeat CT of the chest was recommended in 4 to 6 weeks to ensure complete resolution after treatment. Blood cultures remain negative throughout his hospitalization and he remained hemodynamically stable and afebrile. He did not require oxygen during the hospitalization. Lab work revealed an elevated white blood cell count to 43K on admission with an H&H 8.7/28.2, platelet count 122K, monocytes at 69%. At time of discharge (hospital day 3) after clinical improvement, white blood cell count was 35K, H&H was 8.4/26.7, platelet count was 76K with differential revealing 60% monocytes. Additionally of note 7.8% blast cells were noted on admission which eugene to 37% and dropped back to 7.2% blast cells the following day. A peripheral smear was performed with the result discussed with pathology. This revealed myelodysplastic type changes amongst an increased circulating blast population (7.8%) and prominent monocytosis. The granulocytes did not show a graded left shift. These findings were concerning for progression of MDS. 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 The patient's oncologist Dr. Brandon Aponte at [facility] was contacted and the results were discussed. Close follow-up with him was scheduled prior to the patient's discharge. This was discussed with the patient and he is aware of the possibility of progression of MDS and of his appointment after the weekend. He verbalized understanding with intent to comply. He remained on Zosyn and was improved and was ultimately switched to Levaquin for to complete a 7-day course. Pulmonology was consulted in the setting of the obstructed bronchus and recommended conservative management with completion of antibiotic course followed by a chest CT to be done in 4 to 6 weeks as above. If the left upper bronchus was still obstructed the patient would likely need a bronchoscopy which can be orchestrated as outpatient if needed. At time of discharge he was hemodynamically stable and afebrile and tolerating p.o. He was oxygenating well on room air and was mentating and ambulating at baseline. Physical exam was unremarkable including clear lungs auscultation bilaterally and a normal heart exam. He was discharged in stable condition with close primary care follow-up recommended. Total Time Total Time Spent Total Time Spent (In Minutes): 60 Total Time Includes: Examination of the Patient, Discharge Planning, Medication Reconciliation, Communication With Other Providers and Other (coordination of outpatient followup) Discharge Plan Discharge Items Patient Disposition: Home - Self-Care Reason For Visit: HCAP Discharge Diagnosis: Pneumonia MDS Condition on Discharge: Good Health Concerns: Possible progression of MDS. Close Oncology follow-up recommended. Please continue entire course of antibiotic provided. It is recommended that you have a repeat CT chest in 4-6 weeks to ensure complete resolution of your pneumonia. This may be ordered by your primary care provider. It is recommended that you follow-up with your primary care provider within one week of discharge to ensure you are still doing well post hospital discharge. It was a pleasure taking care of you! Please call if you have any questions or problems. You can reach a [facility] hospitalist on duty at [facility] 24 hours a day by calling [phone]. Take care of yourself. Yvette Cramer, DO [facility] Activity: Resume your previous activity Non-emergency contact: Primary Care Provider Call non-emergency contact if: you have any medication questions, your symptoms worsen, your pain is not controlled, your pain is worsening, your pain is unusual for you, your pain is concerning for you and you have a fever Follow-up/Referrals: Jaylen Aponte [Other] - 09/18/19 12:00 pm (Please go to the lab prior to the appointment. You will receive your injection this day and see Dr. Aponte for a follow-up. Please bring CD with imaging you received at discharge.) Waqar Beltrán MD [Primary Care Provider] - 09/20/19 11:05 am Diet: Heart Healthy Addtl Attending Provider Instructions: Please take all medications as instructed on discharge list below. It is recommended that you have a repeat CT of your chest in 4-6 weeks to ensure complete resolution of your pneumonia. It is recommended that you follow-up with your primary care provider (PCP) in one week as noted above. Please note the changed appointment time with Dr. Aponte as above. It was a pleasure taking care of you! Please call if you have any questions or problems. You can reach a [facility] hospitalist on duty at [facility] 24 hours a day by calling [phone]. Take care of yourself. Yvette Cramer DO [facility] Pending Studies at Discharge: No Stand-Alone Forms: [facility], Smoking Cessation Medications and DC Order Prescriptions: New levofloxacin 750 mg Tablet 750 mg PO DAILY@0600 Qty: 4 RF: 0 Continued vitamin B complex Tablet 1 tab PO DAILY RF: 0 furosemide 20 mg Tablet 20 mg PO QAM RF: 0 lisinopril 2.5 mg Tablet 2.5 mg PO QAM RF: 0 metformin 1,000 mg tablet 1,000 mg PO BID RF: 0 metoprolol succinate 100 mg tablet extended release 24 hr 100 mg PO HS RF: 0 [place]-3 Fish Oil 300-1,000 mg Capsule 1 cap PO BID RF: 0 ascorbic acid (vitamin C) 1,000 mg Tablet 4 g PO BID RF: 0 vitamin A 10,000 unit Capsule 25,000 unit PO DAILY RF: 0 Discharge Orders: Discharge Order (Routine); Ordered 09/15/19 Ordered By: Yvette Cramer Admission Data Admit Date/Time: 09/14/19 00:30 Attending Provider: Yvette Cramer Admit Provider: Curtis Toth Primary Care Provider: Waqar Beltrán Other Providers: Curtis Toth ; Leighann Chaudhari Other Interventions: Discharge Summary Assessment (RN) Last Done: 09/15/19 12:45 DC Date/Time DO NOT enter until pt leaves facility: 09/15/19 14:23
== END 2019-09-15 14:23 | disposition home or self-care (01) | DRG 194 ==
LOC: ED 20:13 → 2N 09-14 00:30